=== PATIENT | female | born 1970 | race African-American/Black ===

== ENCOUNTER → 2017-06-13 | Outpatient (CLI) | payer OTHER ==
--- NOTE | 2017-06-13 08:06 | DIAGNOSTIC IMAGING REPORT ---
(BARIUM SWALLOW) ESOPHAGUS CLINICAL HISTORY: R13.10 [id number] COMPARISON STUDY: None. FLUOROSCOPY TIME: 1.4 minutes.. FINDINGS: The patient swallowed barium without difficulty. The contours of the hypopharynx are within normal limits. The esophagus is normal course, caliber, motility. No hiatus hernia. Moderate to severe gastroesophageal reflux. The barium tablet passed without difficulty. IMPRESSION: Moderate to severe gastroesophageal reflux. Electronically signed by: Chris Guerra M.D. 06/13/2017 8:05 AM Dictated Date/Time: 06/13/2017 8:01 AM
[2017-06-13 09:33] LABS: BASO % 0.4 %; BASO ABS # 0.03 K/uL (0-0.2); EOS % 2.4 %; EOS ABS # 0.17 K/uL (0-0.5); HEMATOCRIT 41.7 % (37-47); HEMOGLOBIN 13.5 g/dL (12.0-16.0); IG# 0.01 K/uL (0.00-0.02); LYMPH % 28.6 %; LYMPH ABS # 2.04 K/uL (1.2-3.4); MEAN CELL VOLUME 93.9 fL (80-100); MEAN CORPUSCULAR HEMOGLOBIN 30.4 pg (25-34); MEAN CORPUSCULAR HGB CONC 32.4 g/dl (32-36); MEAN PLATELET VOLUME 10.1 fL (7.4-10.4); MONO % 7.1 %; MONO ABS # 0.51 K/uL (0.11-0.59); NEUT % 61.4 %; NEUT ABS # 4.38 K/uL (1.4-6.5); PLATELET COUNT 284 K/uL (130-400); RED CELL DISTRIBUTION WIDTH CV 13.9 % (11.5-14.5); RED CELL DISTRIBUTION WIDTH SD 47.8 fL (36.4-46.3); WHITE BLOOD COUNT 7.14 K/uL (4.8-10.8)
[2017-06-13 09:58] LABS: ALBUMIN 3.6 gm/dl (3.4-5.0); ALT/SGPT 27 U/L (12-78); BLOOD UREA NITROGEN 9 mg/dl (7-18); CALCIUM 9.1 mg/dl (8.5-10.1); CARBON DIOXIDE 30 mmol/L (21-32); CREATININE 0.89 mg/dl (0.60-1.20); GLUCOSE 107 mg/dl (70-99); POTASSIUM 3.9 mmol/L (3.5-5.1); SODIUM 139 mmol/L (136-145)
[2017-06-13 10:09] LABS: ALKALINE PHOSPHATASE 88 U/L (45-117); AST/SGOT 14 U/L (15-37); CHOLESTEROL 196 mg/dl (0-200); LDL CHOLESTEROL CALCULATED 121 mg/dl; TOTAL PROTEIN 7.3 gm/dl (6.4-8.2)
== END | disposition home or self-care (01) ==
LOC: C.RAD 07:12
PROVIDERS: ATTEND Internal Medicine
DX: R13.10 Dysphagia, unspecified (principal); Z13.220 Encounter for screening for lipoid disorders; R07.89 Other chest pain; K21.9 Gastro-esophageal reflux disease without esophagitis